=== PATIENT | female | born 1980 | race Two or more races ===

== ENCOUNTER 2017-12-08 22:21 | Emergency (ER) | payer MEDICAID, OTHER ==
[~2017-12-08] VITALS: Ht 157.5 cm; Wt 77.1 kg
[~2017-12-08 22:21] MED LIST: MACROBID100 MG ORAL; ZOFRAN4 MG ORAL
[2017-12-08 22:41] VITALS: BP 109/59
--- NOTE | 2017-12-08 23:15 | Emergency Room Report ---
History of Present Illness General Chief Complaint: Dizziness Source: Patient Present Illness HPI Patient presents with reports of dizziness She reports that about a week ago she had an episode of dizziness sensation of being dry to the ground this had cough some nausea She had improved however again recently over the past one to 2 days she started having dizzy episode Denies any vomiting denies any diarrhea denies any neck pain or photophobia denies any fevers or chills Denies any recent water contact Patient questioned trauma about one year ago where she had some dizzy episodes after that Patient also discussed that there was a propositioned 67 outside their facility And questioning possible lead poisoning versus other poisoning Patient is here with her daughter who also had complained of headache about 2 hours prior to arrival Allergies: Coded Allergies: No Known Allergies (Unverified , 03/12/15) Patient History Past Medical History: see triage record Pertinent Family History: none Last Menstrual Period: Nov Reviewed Nursing Documentation: PMH: Agreed; PSxH: Agreed Review of Systems All Other Systems: negative except mentioned in HPI Physical Exam Vital Signs Date Time Temp Pulse Resp B/P (MAP) Pulse Ox O2 Delivery O2 Flow Rate FiO2 12/08/17 22:30 98.4 66 18 109/59 97 Room Air 98.4 Sp02 EP Interpretation: reviewed, normal General Appearance: well appearing, no apparent distress Head: normocephalic, atraumatic Eyes: bilateral eye PERRL, bilateral eye EOMI ENT: hearing grossly normal, normal pharynx, TMs + canals normal, uvula midline Neck: full range of motion, supple, no meningismus, no bony tend Respiratory: lungs clear, normal breath sounds, no rhonchi, no respiratory distress, no retraction, no accessory muscle use Cardiovascular #1: normal peripheral pulses, regular rate, rhythm, no edema, no gallop, no JVD, no murmur Gastrointestinal: normal bowel sounds, non tender, soft, no mass, no organomegaly, non-distended, no guarding, no hernia, no pulsatile mass, no rebound Genitourinary: no CVA tenderness Musculoskeletal: normal inspection Neurologic: oriented x3, responsive, database analyst III-XII nml as tested, motor strength/ tone normal, sensory intact Psychiatric: mood/affect normal Skin: normal color, no rash, warm/dry, palpation normal Lymphatic: normal inspection, no adenopathy Medical Decision Making Diagnostic Impression: Primary Impression: Dizziness ER Course Multiple differentials are considered including but not limited to anemia, vertigo neurological, infectious pathology Patient has a benign neurological exam Is hemodynamically stable At this time does not meet any criteria for acute imaging Her symptoms are consistent with vertigo Patient will be attempted on oral medication I did advise close follow-up with further testing is needed by primary physician at pediatrics for her daughter Does not appear to be consistent with carbon monoxide poisoning, there are no other family members that are involved and patient will follow closely, Last Vital Signs Date Time Temp Pulse Resp B/P (MAP) Pulse Ox O2 Delivery O2 Flow Rate FiO2 12/08/17 22:41 98.4 66 18 109/59 97 Room Air 98.4 Status: unchanged Disposition: HOME, SELF-CARE Condition: Stable Referrals: [facility],REFERRING (PCP) Additional Instructions: Patient is provided with the discharge instructions notified to follow up with primary doctor in the next 2-3 days otherwise return to the er with any worsening symptoms. Please note that this report is being documented using [employer] technology. This can lead to erroneous entry secondary to incorrect interpretation by the dictating instrument. Ruel Whalen DO Dec 08, 2017 23:15
[2017-12-08] MEDS ORDERED: MECLIZINE HCL25 MG ORAL (23:16)
[2017-12-08 23:25] VITALS: BP 109/59
== END 2017-12-08 23:26 | disposition home or self-care (01) ==
LOC: EMR 22:41
DX: R42 Dizziness and giddiness (principal)
CPT/HCPCS: 99282

== ENCOUNTER 2018-02-04 18:02 | Emergency (ER) | payer MEDICAID, OTHER ==
[~2018-02-04] VITALS: Ht 160 cm; Wt 78.5 kg
[~2018-02-04 18:02] MED LIST changes: +MECLIZINE HCL25 MG ORAL
[2018-02-04 18:31] VITALS: BP 114/64
[2018-02-04] MEDS ORDERED: PREDNISONE20 MG ORAL (19:20)
--- NOTE | 2018-02-04 19:20 | Emergency Room Report ---
History of Present Illness General Chief Complaint: Flu Like Symptoms Source: Patient Present Illness [facility] This patient c/o 2-3 days of viral URI symptoms including sore throat, rhinitis , nasal congestion, non productive cough. Malaise, myalgias, possibly tactile fever. The patient has no vomiting, chest pain or SOB. No travel history, leg pain/swelling. Maximum complaint is sore throat. Temp ~99. Allergies: Coded Allergies: No Known Allergies (Unverified , 03/12/15) Patient History Last Menstrual Period: 01/30/18 Nursing Documentation-[facility] Past Medical History: No Stated History Review of Systems Constitutional: Reports: no symptoms Eye: Reports: no symptoms ENT: Reports: throat pain Respiratory: Reports: no symptoms Cardiovascular: Reports: no symptoms Gastrointestinal: Reports: no symptoms Genitourinary: Reports: no symptoms Musculoskeletal: Reports: no symptoms Skin: Reports: no symptoms Psychiatric: Reports: no symptoms Neurological: Reports: no symptoms Endocrine: Reports: no symptoms Hematologic/Lymphatic: Reports: no symptoms Allergic: Reports: no symptoms All Other Systems: negative except mentioned in HPI Physical Exam Vital Signs Date Time Temp Pulse Resp B/P (MAP) Pulse Ox O2 Delivery O2 Flow Rate FiO2 02/04/18 18:10 98.2 88 18 114/64 97 Room Air Sp02 EP Interpretation: reviewed, normal General Appearance: normal inspection, alert, GCS 15, non-toxic, mild distress Head: normocephalic, atraumatic Eyes: bilateral eye normal inspection, bilateral eye PERRL, bilateral eye EOMI ENT: normal ENT inspection, hearing grossly normal, no angioedema, normal voice , moist mucus membranes, tonsillar swelling, pharyngeal erythema, tonsillar exudate Neck: normal inspection, full range of motion, supple, no meningismus, no bony tend Respiratory: normal inspection, lungs clear, normal breath sounds, no rhonchi, no respiratory distress, no retraction, no accessory muscle use, no wheezing Cardiovascular #1: normal inspection, regular rate, rhythm, no edema Gastrointestinal: normal inspection, normal bowel sounds, non tender, soft, no mass, non-distended Musculoskeletal: gait/station normal, normal range of motion Neurologic: normal inspection, alert, oriented x3, responsive, motor strength/ tone normal Psychiatric: normal inspection, judgement/insight normal, memory normal Suicide Risk Assessment: Suicidal Ideation: No Had intent to initiate attempt: No Pt's plan for suicide attempt: No Has means to complete attempt: No Skin: normal inspection, normal color, no rash, warm/dry Medical Decision Making Diagnostic Impression: Primary Impression: Pharyngitis ER Course prednisone for 2-3 days for symptom relief nonprod cough, OTC robitussin dm recommended 4F daughter with same Last Vital Signs Date Time Temp Pulse Resp B/P (MAP) Pulse Ox O2 Delivery O2 Flow Rate FiO2 02/04/18 18:31 98.2 88 18 114/64 97 Room Air Disposition: HOME, SELF-CARE Condition: Stable Scripts Prednisone* (PREDNISONE*) 20 Mg Tablet 40 MG ORAL DAILY, #2 TAB Prov: Bethel Lerma M.D. 02/04/18 Referrals: [facility],REFERRING (PCP) Patient Instructions: Pharyngitis, [id number] Bethel Lerma M.D. Feb 04, 2018 19:20
[2018-02-04 19:32] VITALS: BP 114/64
== END 2018-02-04 19:32 | disposition home or self-care (01) ==
LOC: EMR 19:09
DX: J02.9 Acute pharyngitis, unspecified (principal)
CPT/HCPCS: 99282; J7512

== ENCOUNTER 2018-02-26 18:39 | Emergency (ER) | payer MEDICAID ==
[~2018-02-26] VITALS: Ht 157.5 cm; Wt 74.8 kg
[~2018-02-26 18:39] MED LIST changes: +PREDNISONE20 MG ORAL
[2018-02-26 18:50] VITALS: BP 118/71
[2018-02-26] MEDS ORDERED: Albuterol/Ipratropium 3ml neb HHN ONE (19:15)
--- NOTE | 2018-02-26 19:38 | Emergency Room Report ---
History of Present Illness General Chief Complaint: Upper Respiratory Illness Source: Patient Present Illness HPI 37-year-old female patient presents ER complaining of cough for the past 2 days. Patient denies cough with sputum or hemoptysis. Denies calf pain or neck pain. Denies fever. Denies recent travel or immobilization. Does not take control medication. Denies smoking cigarette use. Reports reproducible pain with cough. Denies injury or trauma. Denies history of asthma, heart attack, heart disease. Reports taking Robitussin for relief of cough symptoms with minimal relief. Allergies: Coded Allergies: No Known Allergies (Unverified , 03/12/15) Patient History Past Medical History: see triage record Last Menstrual Period: 2 weeks Now: No Reviewed Nursing Documentation: PMH: Agreed; PSxH: Agreed Nursing Documentation-PMH Past Medical History: No History, Except For Review of Systems All Other Systems: negative except mentioned in HPI Physical Exam Vital Signs Date Time Temp Pulse Resp B/P (MAP) Pulse Ox O2 Delivery O2 Flow Rate FiO2 02/26/18 18:42 98.4 96 18 118/71 96 Room Air 02/26/18 19:24 21 Sp02 EP Interpretation: reviewed, normal General Appearance: well appearing, no apparent distress, alert, GCS 15, non- toxic Head: normocephalic, atraumatic Eyes: bilateral eye normal inspection, bilateral eye PERRL ENT: hearing grossly normal, normal pharynx, no angioedema, normal voice, uvula midline, moist mucus membranes Neck: full range of motion Respiratory: lungs clear, no rhonchi, no respiratory distress, no accessory muscle use, no wheezing, decreased breath sounds, speaking full sentences, other - no stridor Cardiovascular #1: regular rate, rhythm, no edema Musculoskeletal: back normal, digits/nails normal, gait/station normal, normal range of motion, non-tender, no calf tenderness, Gibran's Sign negative Neurologic: alert, oriented x3, responsive, motor strength/tone normal, sensory intact Psychiatric: mood/affect normal Skin: no rash Lymphatic: no adenopathy Medical Decision Making PA Attestation Dr. Lipscomb is my supervising Physician whom patient management has been discussed with. Diagnostic Impression: Primary Impression: Bronchitis ER Course Pt presents to ED c/o cough. DDX considered but are not limited to asthma, viral URI, influenza, bronchitis, pneumonia. VITAL SIGNS are WNL, patient is afebrile. Ordered breathing treatment and medication. ER COURSE Patient provided with prednisone Duoneb breathing treatment provided. Following treatment patient states no longer having difficulty with breathing. Patient is resting comfortably in no acute distress. chest x-ray negative for acute disease. patient afebrile, low suspicion for pneumonia. Does not require abx at this time. remainder physical exam benign. Likely bronchitis causing symptoms. ER precautions given. DISCHARGE: -Rx given for Prednisone. -Rx provided for Albuterol MDI. -Rx provided for Tessalon Perles -Rx provided for Tylenol At this time pt is stable for d/c to home. Patient is resting comfortably in no acute distress, nontoxic appearing, able to answer questions without difficulty. Patient to take medications as instructed Will provide with patient care instructions and any necessary prescriptions. Care plan and follow-up instructions provided. Patient instructed to follow-up with primary care provider in 3 - 5 days. Patient questions asked and answered. Patient reports understanding and agreement to treatment plan. ER precautions given. Patient instructed to return to ER immediately for any new or worsening of symptoms including but not limited to increasing SOB, persistent fever. - Please note that this Emergency Department Report was dictated using [employer] project manager technology software, occasionally this can lead to erroneous entry secondary to interpretation by the dictation equipment. Chest X-Ray Diagnostic Results Chest X-Ray Diagnostic Results : Chest X-Ray Ordered: Yes # of Views/Limited/Complete: 1 View Indication: Chest Pain EP Interpretation: Yes PA Xray: Interpretation reviewed, by supervising MD, and agrees with findings. Interpretation: no consolidation, no effusion, no pneumothorax, no acute cardiopulmonary disease Impression: No acute disease ALAN Scribe Text Frank Hidalgo PA-C Last Vital Signs Date Time Temp Pulse Resp B/P (MAP) Pulse Ox O2 Delivery O2 Flow Rate FiO2 02/26/18 19:34 88 20 99 Room Air 21 02/26/18 18:50 98.4 118/71 Status: improved Disposition: HOME, SELF-CARE Condition: Stable Scripts Acetaminophen* (TYLENOL EXTRA STRENGTH*) 500 Mg Tablet 500 MG ORAL Q8H PRN for Prn Headache/Temp > 101, #30 TAB 0 Refills Prov: Omar Hidalgo P.AEd 02/26/18 Benzonatate* (TESSALON PERLE*) 100 Mg Capsule 100 MG ORAL THREE TIMES A DAY, #25 PERLE Prov: Omar Hidalgo 02/26/18 Albuterol Sulfate* (ALBUTEROL SULFATE MDI*) 8.5 Gm Hfa.aer.ad 2 PUFF INH Q6H, #1 INH 0 Refills Prov: Omar Hidalgo 02/26/18 Prednisone* (PREDNISONE*) 20 Mg Tablet 40 MG ORAL DAILY for 4 Days, #8 TAB Prov: Omar Hidalgo 02/26/18 Referrals: [facility],REFERRING (PCP) Patient Instructions: Acute Bronchitis, [id number] Additional Instructions: Followup with primary care provider in 3 -5 days. Take medications as directed. Patient questions asked and answered. ER precautions given, patient instructed to return to ER immediately for any new or worsening of symptoms. Omar Hidalgo Feb 26, 2018 19:38
[2018-02-26] MEDS ORDERED: PREDNISONE20 MG ORAL (19:44)
[2018-02-26] MEDS ORDERED: TESSALON PERLE100 MG ORAL (19:44)
[2018-02-26] MEDS ORDERED: ALBUTEROL SULF8.5 GM INH (19:44)
[2018-02-26] MEDS ORDERED: TYLENOL EXTRA500 MG ORAL (19:44)
[2018-02-26 19:51] VITALS: BP 118/71
--- NOTE | 2018-02-27 09:49 | Diagnostic Imaging Report ---
Indication: Shortness of breath Technique: One view of the chest Comparison: none Findings: Lungs and pleural spaces are clear. Heart size is normal Impression: No acute process
== END 2018-02-26 19:51 | disposition home or self-care (01) ==
LOC: EMR 18:55
DX: J40 Bronchitis, not specified as acute or chronic (principal)
CPT/HCPCS: 71045; 94640; 94664; 99283; J7512; J7620

== ENCOUNTER 2018-10-09 21:43 | Emergency (ER) | payer MEDICAID, OTHER ==
[~2018-10-09] VITALS: Ht 157.5 cm; Wt 77.1 kg
[~2018-10-09 21:43] MED LIST changes: +ALBUTEROL SULF8.5 GM INH; +TESSALON PERLE100 MG ORAL; +TYLENOL EXTRA500 MG ORAL
--- NOTE | 2018-10-09 22:22 | NUR ---
ED Nurse Note: Received report. Pt from home, ambulatory, AAOx4, c/o flu like symptoms for the last 2-3 days. Pt also brought her daughters who are having the same syptoms. Will assess and carry out ER MD's orders.
[2018-10-09 22:55] VITALS: BP 104/64
[2018-10-09] MEDS ORDERED: Albuterol/Ipratropium 3ml neb HHN ONE (23:00)
[2018-10-09] MEDS ORDERED: Albuterol/Ipratropium 3ml neb ONE (23:11)
--- NOTE | 2018-10-10 00:35 | Emergency Room Report ---
History of Present Illness General Chief Complaint: Flu Like Symptoms Source: Patient Present Illness HPI Patient presents with 2 to 3 days of cough fever. Her daughters have viral gastroenteritis at this time. She has minimal nausea but no vomiting. She does complain of diarrhea. She has some abdominal pain which is diffuse and crampy. The cough is causing mild chest discomfort. She rates the pain 8/10 chest and abdomen as well is having a headache when she coughs. Achy pain. She denies any chills but feels feverish. There is some green phlegm produced. The cough is keeping her awake at night. She denies vomiting or diarrhea. She denies dysuria. Her last period was normal. She does not believe she is . States the diarrhea is improving. Denies travel or ill contacts ( aside from her daughters). She denies asthma. Has used an inhaler in past. Allergies: Coded Allergies: No Known Allergies (Unverified , 10/09/18) Patient History Past Medical History: see triage record Past Surgical History: other - Collapsed lung age 16, ectopic x2 Social History: Denies: smoking, alcohol use, drug use Social History Narrative in home care Last Menstrual Period: 10-02-2018 Now: No Reviewed Nursing Documentation: PMH: Agreed; PSxH: Agreed Review of Systems All Other Systems: negative except mentioned in HPI Physical Exam Vital Signs Date Time Temp Pulse Resp B/P (MAP) Pulse Ox O2 Delivery O2 Flow Rate FiO2 10/09/18 22:17 98.1 79 18 104/64 (77) 98 Room Air 10/09/18 23:17 21 Sp02 EP Interpretation: reviewed, normal General Appearance: well appearing, no apparent distress, alert, GCS 15 Head: normocephalic, atraumatic Eyes: bilateral eye normal inspection, bilateral eye PERRL ENT: hearing grossly normal, normal pharynx, no angioedema, normal voice, moist mucus membranes Neck: full range of motion, supple Respiratory: no respiratory distress, speaking full sentences, other - Posttussive wheezing Cardiovascular #1: regular rate, rhythm Cardiovascular #2: 2+ radial (R) Gastrointestinal: normal inspection, normal bowel sounds, non tender Genitourinary: no CVA tenderness Musculoskeletal: back normal, digits/nails normal, gait/station normal, normal range of motion, no calf tenderness Neurologic: alert, oriented x3, normal gait, grossly normal Psychiatric: mood/affect normal Skin: no rash Medical Decision Making Diagnostic Impression: Primary Impression: Viral syndrome Additional Impressions: Bronchitis Bronchospasm Gastroenteritis ER Course Patient presents with cough, nausea, diarrhea and feeling feverish. Differential includes upper respiratory infection likely viral or bacterial, bronchospasm, gastroenteritis amongst others. Patient has posttussive wheezing and breathing treatment is indicated. Based on pulse oximetry x-ray is not necessary at this time. As her children both have viral gastroenteritis etiology of this illness this patient is most likely viral as both respiratory and GI are involved suggest more viral etiology. No laboratory studies are indicated at this time. Tylenol is given. Patient improved after breathing treatments and Tylenol. Discussed treatment plan with patient. She is asking if antibiotics are indicated. The fact that it appears viral suggest that antibiotics are not indicated. She is not doing better in the next 2 days she is advised to return for reevaluation. Patient stable for outpatient observation and treatment. Last Vital Signs Date Time Temp Pulse Resp B/P (MAP) Pulse Ox O2 Delivery O2 Flow Rate FiO2 10/10/18 00:26 98.1 10/09/18 23:28 80 18 100 Room Air 21 10/09/18 22:55 104/64 Status: improved Disposition: HOME, SELF-CARE Condition: Improved Scripts Albuterol Sulfate* (ALBUTEROL SULFATE MDI*) 8.5 Gm Hfa.aer.ad 2 PUFF INH Q6H, #1 EA 0 Refills Prov: Adalberto Escobar MD 10/10/18 Chlorpheniramine Maleate (CHLOR-TRIMETON) 4 Mg Tablet 4 MG PO Q6HR, #10 TAB Prov: Adalberto Escobar MD 10/10/18 Guaifenesin/Codeine Phos* (ROBITUSSIN AC*) 118 Ml Liquid 5 ML ORAL Q6H PRN for For Cough, #90 ML 0 Refills Prov: Adalberto Escobar MD 10/10/18 Ondansetron Odt* (ZOFRAN ODT*) 4 Mg Tab.rapdis 4 MG BC EVERY 8 HOURS, #6 TAB 0 Refills Prov: Adalberto Escobar MD 10/10/18 Referrals: [facility],REFERRING (PCP) Adalberto Escobar MD Oct 10, 2018 00:35
[2018-10-10] MEDS ORDERED: ALBUTEROL SULF8.5 GM INH (00:38)
[2018-10-10] MEDS ORDERED: CHLOR-TRIMETON4 MG PO (00:38)
[2018-10-10] MEDS ORDERED: GUAIFENESIN-CO118 M1 ORAL (00:38)
[2018-10-10] MEDS ORDERED: ONDANSETRON ODT4 MG BC (00:38)
--- NOTE | 2018-10-10 01:08 | NUR ---
ED Nurse Note: Pt cleared by health care Provider for discharge. DC instructions/prescription was given and explained to pt and verbalized understanding of teachings. All medical deviecs such as ID band removed. Pt is AAO x4, ambulatory and left with all personal belongings.
== END 2018-10-10 01:08 | disposition home or self-care (01) ==
LOC: EMR 22:55
DX: B34.9 Viral infection, unspecified (principal); J20.9 Acute bronchitis, unspecified; K52.9 Noninfective gastroenteritis and colitis, unspecified
CPT/HCPCS: 94640; 94664; 99283; J7620

== ENCOUNTER 2019-05-21 22:10 | Emergency (ER) | payer OTHER ==
[~2019-05-21] VITALS: Ht 157.5 cm; Wt 79.4 kg
[~2019-05-21 22:10] MED LIST changes: +CHLOR-TRIMETON4 MG PO; +GUAIFENESIN-CO118 M1 ORAL; +ONDANSETRON ODT4 MG BC
[2019-05-21 22:22] VITALS: BP 110/65
--- NOTE | 2019-05-21 22:22 | NUR ---
ED Nurse Note: pt walked into ED for C/O difficulty swallowing with sore throat since yesterday. PT also reports having headache , dysuria.
[2019-05-21] MEDS ORDERED: CEPHALEXIN500 MG ORAL (22:42)
[2019-05-21] MEDS ORDERED: IBUPROFEN600 MG ORAL (22:42)
--- NOTE | 2019-05-21 22:43 | Emergency Room Report ---
History of Present Illness General Chief Complaint: Female Urogenital Problems Source: Patient Present Illness HPI This a 38-year-old female with no past medical history. She presents with chief complaint. Her first complaint is sore throat. Onset for last 2 days. Worse with swallowing. Better with sitting up. Pain is 9 out of 10. Also has congestion and runny nose. Slight cough. Denies any fever chills but no nausea vomiting or diarrhea. Second plane is urinary tract symptoms she has dysuria and frequency. No hematuria. Mild urgency. No discharge. No back pain. Allergies: Coded Allergies: No Known Allergies (Unverified , 10/09/18) Patient History Past Medical History: see triage record, old chart reviewed Past Surgical History: none Pertinent Family History: none Social History: Denies: smoking Last Menstrual Period: 05/2019 Now: No Immunizations: other Reviewed Nursing Documentation: PMH: Agreed; PSxH: Agreed Review of Systems Eye: Denies: eye pain, blurred vision ENT: Reports: throat pain; Denies: ear pain, nose congestion, throat swelling Respiratory: Reports: cough; Denies: shortness of breath Cardiovascular: Denies: chest pain, palpitations Gastrointestinal: Denies: abdominal pain, diarrhea, nausea, vomiting Genitourinary: Reports: dysuria, frequency Musculoskeletal: Denies: back pain, joint pain Skin: Denies: rash Neurological: Denies: headache, numbness Endocrine: Denies: increased thirst, increased urine Hematologic/Lymphatic: Denies: easy bruising All Other Systems: negative except mentioned in HPI Physical Exam Vital Signs Date Time Temp Pulse Resp B/P (MAP) Pulse Ox O2 Delivery O2 Flow Rate FiO2 05/21/19 22:16 98.1 88 16 102/65 (77) 97 Room Air Vitals normal Sp02 EP Interpretation: reviewed, normal General Appearance: well appearing, no apparent distress, alert Head: normocephalic, atraumatic Eyes: bilateral eye PERRL, bilateral eye EOMI ENT: hearing grossly normal, uvula midline - Elongated, pharyngeal erythema Neck: full range of motion, supple, no meningismus Respiratory: chest non-tender, lungs clear, normal breath sounds Cardiovascular #1: regular rate, rhythm, no murmur Gastrointestinal: normal bowel sounds, non tender, no mass, no organomegaly, no bruit, non-distended Musculoskeletal: back normal, normal range of motion, gait/station normal Psychiatric: mood/affect normal Medical Decision Making Diagnostic Impression: Primary Impression: Acute viral pharyngitis Additional Impression: UTI (urinary tract infection) Qualified Codes: N30.00 - Acute cystitis without hematuria ER Course Patient presents with a viral pharyngitis. No evidence of any strep throat, retropharyngeal abscess or Curt angina. Unlikely to be strep. She also has symptoms of UTI. No evidence of pyelonephritis or sepsis. Last Vital Signs Date Time Temp Pulse Resp B/P (MAP) Pulse Ox O2 Delivery O2 Flow Rate FiO2 05/21/19 22:22 98.1 85 15 110/65 98 Room Air Status: improved Disposition: HOME, SELF-CARE Condition: Stable Scripts Ibuprofen* (MOTRIN*) 600 Mg Tablet 600 MG ORAL THREE TIMES A DAY, #30 TAB 0 Refills Prov: Jerry Montoya MD 05/21/19 Cephalexin* (KEFLEX*) 500 Mg Capsule 500 MG ORAL TID, #21 CAP Prov: Jerry Montoya MD 05/21/19 Patient Instructions: Urinary Tract Infection Additional Instructions: Increase fluids. Salt water gargle. Follow-up with your doctor in 7 days. Return if worse. Jerry Montoya MD May 21, 2019 22:43
[2019-05-21] MEDS ORDERED: Cephalexin 500mg cap ORAL ONE (22:45)
[2019-05-21 22:47] VITALS: BP 105/70
--- NOTE | 2019-05-21 22:47 | NUR ---
ER DISCHARGE NOTE: Patient is cleared to be discharged per ERMD, pt is aox4, on room air, with stable vital signs. pt was given dc and prescription instructions, pt was able to verbalize understanding, pt id band removed without complications. pt is able to ambulate with steady gait. pt took all belongings.
== END 2019-05-21 22:47 | disposition home or self-care (01) ==
LOC: EMR 22:33
DX: J02.8 Acute pharyngitis due to other specified organisms (principal); N30.00 Acute cystitis without hematuria
CPT/HCPCS: 87086; J7512; Z7502; 99282

== ENCOUNTER 2019-06-23 21:14 | Emergency (ER) | payer OTHER ==
[~2019-06-23] VITALS: Ht 157.5 cm; Wt 81.6 kg
[~2019-06-23 21:14] MED LIST changes: +CEPHALEXIN500 MG ORAL; +IBUPROFEN600 MG ORAL
[2019-06-23 21:25] VITALS: BP 127/70
--- NOTE | 2019-06-23 21:25 | NUR ---
ED Nurse Note: Pt denies any recent travel or contact with recent travelers.
--- NOTE | 2019-06-23 21:25 | NUR ---
ED Nurse Note: Pt walked into ED from home for c/o SOB that started today, but pt reports recent cough and congestion for the last three days. Pt states it feels "like its hard to take a deep breath". Pt is aaox4, breathing is normal and unlabored, no cardiac distress noted. Pt connected to signal mechanic, will continue to monitor.
--- NOTE | 2019-06-23 21:37 | Emergency Room Report ---
History of Present Illness General Chief Complaint: Upper Respiratory Illness Source: Patient Present Illness HPI Disclaimer: Please note that this report is being documented using DRAGON technology. This can lead to erroneous entry secondary to incorrect interpretation by the dictating instrument. HPI: 38-year-old female presents for evaluation of cough and shortness of breath. Symptoms began 2 days ago. Notes nasal congestion, sore throat and a nonproductive intermittent cough. Denies fever or chills. Notes multiple sick contacts at home. Denies abdominal pain, nausea, vomiting or diarrhea. Reports pain in her chest with coughing. Feels like he cannot catch her breath today. No history of asthma and states that whenever she gets sick she usually gets breathing treatments at a hospital which significantly improve her symptoms. She does not use albuterol inhaler regularly. Denies any recent travel. Does not take exogenous hormones, no recent immobilization. PMH: Denies PSH: Denies Allergies: Denies Social Hx: Non-smoker Allergies: Coded Allergies: No Known Allergies (Unverified , 10/09/18) Patient History Last Menstrual Period: 06/03/19 Now: No : 8 Para: 3 Nursing Documentation-PMH Past Medical History: No Stated History Hx Cardiac Problems: No Hx Hypertension: No Hx Pacemaker: No Hx Asthma: No Hx COPD: No Hx Diabetes: No Hx Cancer: No Hx Gastrointestinal Problems: No Hx Dialysis: No History Of Psychiatric Problem: No Hx Neurological Problems: No Hx Cerebrovascular Accident: No Hx Seizures: No Review of Systems All Other Systems: negative except mentioned in HPI Physical Exam Vital Signs Date Time Temp Pulse Resp B/P (MAP) Pulse Ox O2 Delivery O2 Flow Rate FiO2 06/23/19 21:23 98.1 98 22 127/70 (89) 94 Room Air General: Awake and alert, no acute distress HEENT: NC/AT. EOMI. Cardiovascular: RRR. S1 and S2 normal. No murmur appreciated Resp: Normal work of breathing. No cough. Bilateral expiratory wheezes. No crackles appreciated. Abdomen: Abdomen is soft, nondistended. Nontender Skin: Intact. No abrasions, laceration or rash over the exposed skin MSK: Normal tone and bulk. Moving all extremities. No obvious deformity. Neuro: Awake and alert. Mentating appropriately. Medical Decision Making Diagnostic Impression: Primary Impression: Respiratory illness Additional Impression: Asthma ER Course 38-year-old female presents for evaluation of cough and shortness of breath. Differential includes but not limited to viral syndrome, pneumonia, pneumothorax, bronchitis, GERD, bronchospasm, asthma, CHF, pleural effusion. Overall she is well-appearing, saturating well on room air but does have expiratory wheezes. Likely a viral syndrome triggering some reactive airway disease. She will be treated with breathing treatments and will obtain a chest x-ray. Advance work-up as needed. Chest X-Ray Diagnostic Results Chest X-Ray Diagnostic Results : Chest X-Ray Ordered: Yes # of Views/Limited/Complete: 1 View Indication: Shortness of Breath EP Interpretation: Yes Interpretation: no consolidation, no effusion, no pneumothorax, no acute cardiopulmonary disease Impression: No acute disease Electronically Signed by: Electronically signed by Dr. Cipriano Hart Reevaluation Time: 23:09 Last Vital Signs Date Time Temp Pulse Resp B/P (MAP) Pulse Ox O2 Delivery O2 Flow Rate FiO2 06/23/19 21:23 98.1 98 22 127/70 (89) 94 Room Air Reevaluation Impression No infiltrate or evidence of pneumothorax or other significant pathology on chest x-ray. Reports improvement after receiving breathing treatment and wheezing resolved. Will discharge with albuterol inhaler and start steroids for 3 days. Likely a viral respiratory infection given the nasal congestion and cough. She is otherwise well-appearing with stable vital signs. Follow-up on an outpatient basis and return with new or worsening symptoms. She understands and agrees with this treatment plan. Disposition: HOME, SELF-CARE Condition: Stable Scripts Prednisone* (PREDNISONE*) 20 Mg Tablet 40 MG ORAL DAILY for 2 Days, #4 TAB Prov: Cipriano Hart MD 06/23/19 Guaifenesin* (GUAIFENESIN*) 100 Mg/5 Ml Liquid 5 ML ORAL Q6H PRN for For Cough, #120 ML 0 Refills Prov: Cipriano Hart MD 06/23/19 Albuterol Sulfate* (ALBUTEROL SULFATE MDI*) 8.5 Gm Hfa.aer.ad 2 PUFF INH Q6H, #1 INH 0 Refills Prov: Cipriano Hart MD 06/23/19 Cipriano Hart MD Jun 23, 2019 21:37
[2019-06-23] MEDS ORDERED: Albuterol/Ipratropium 3ml neb HHN ONE (21:45)
[2019-06-23] MEDS ORDERED: Albuterol ud Inhalation HHN ONE ×2 (22:00→22:30)
[2019-06-23] MEDS ORDERED: ALBUTEROL SULF8.5 GM INH (22:04)
[2019-06-23] MEDS ORDERED: GUAIFENESI100 MG/5 M ORAL (22:05)
[2019-06-23] MEDS ORDERED: PREDNISONE20 MG ORAL (22:05)
--- NOTE | 2019-06-23 22:45 | NUR ---
ED Nurse Note: Pt states she is feeling alot better. Decreased wheezing noted.
[2019-06-23 23:00] VITALS: BP 124/75
--- NOTE | 2019-06-23 23:00 | NUR ---
ER DISCHARGE NOTE: Patient is cleared to be discharged per ERMD, pt is aox4, on room air, with stable vital signs. pt was given dc and prescription instructions, pt was able to verbalize understanding, pt id band removed. pt is able to ambulate with steady gait. pt took all belongings.
--- NOTE | 2019-06-24 09:04 | Diagnostic Imaging Report ---
Indication: Cough Technique: One view of the chest Comparison: 02/26/2018 Findings: Lungs and pleural spaces are clear. Heart size is normal. No significant interim change Impression: No acute process
== END 2019-06-23 23:00 | disposition home or self-care (01) ==
LOC: EMR 21:38
DX: R05 Cough (principal); J45.909 Unspecified asthma, uncomplicated
CPT/HCPCS: 71045; J7512; Z7502; 99284; J7620